=== PATIENT | female | born 1940 | race Caucasian/White ===

== ENCOUNTER 2021-03-13 04:30 | Day surgery (SDC) | payer BC ==
[2021-03-11 16:05] VITALS: BMI 30.1
[2021-03-13] MEDS ORDERED: BUPIVACAINE HCL/PF 0.5% (5MG/ML) 10 ML VIAL ONE (07:33)
[2021-03-13] MEDS ORDERED: TRIAMCINOLONE ACET 40MG/1ML VIAL ONE (07:33)
[2021-03-13] MEDS ORDERED: LIDOCAINE HCL/PF 1% SDV 5ML VIAL ONE (07:33)
[2021-03-13] MEDS ORDERED: LIDOCAINE HCL 1%, 10 MG/ML (20ML VIAL) INF ONE (09:13)
[2021-03-13] MEDS ORDERED: TRIAMCINOLONE ACET 40MG/1ML VIAL IM ONE (09:15)
[2021-03-13] MEDS ORDERED: IOHEXOL 180 MG/1 ML ML IJ ONE (09:15)
[2021-03-13] MEDS ORDERED: BUPIVACAINE HCL/PF 0.5% (5MG/ML) 10 ML VIAL IJ ONE (09:16)
[2021-03-13 09:32] VITALS: TEMP 98.2
[2021-03-13 09:53] VITALS: BP 140/71; PULSE 77
== END 2021-03-13 09:50 | disposition home or self-care (01) ==
LOC: JASU-SURG 04:30
PROVIDERS: ATTEND Pain Medicine Pain Medicine
PROC: 3E0U3BZ Introduction of Anesthetic Agent into Joints, Percutaneous Approach (ICD-10-PCS; 2021-03-13)
PROC: 3E0U33Z Introduction of Anti-inflammatory into Joints, Percutaneous Approach (ICD-10-PCS; principal; 2021-03-13 08:30)
DX: M53.3 Sacrococcygeal disorders, not elsewhere classified (principal)
CPT/HCPCS: 76000-TC-FY

== ENCOUNTER 2021-05-08 04:28 | Day surgery (SDC) | payer BC ==
[2021-05-07 14:41] VITALS: BMI 30.1
[~2021-05-08 04:28] MED LIST: BUPIVACAINE HCL/PF 0.75% 10 ML VIAL NR ONE; IOHEXOL 180 MG/1 ML ML IJ ONE; LIDOCAINE HCL 1% PRESERVATIVE FREE - 30ML VIAL IJ ONE
[2021-05-08] MEDS ORDERED: LIDOCAINE HCL/PF 2% SDV 5ML VIAL ONE (07:28)
[2021-05-08] MEDS ORDERED: LIDOCAINE HCL 1% PRESERVATIVE FREE - 30ML VIAL IJ ONE ×2 (08:43→08:44)
[2021-05-08] MEDS ORDERED: IOHEXOL 180 MG/1 ML ML IJ ONE ×2 (08:44→08:45)
[2021-05-08] MEDS ORDERED: BUPIVACAINE HCL/PF 0.75% 10 ML VIAL NR ONE ×2 (08:44→08:45)
[2021-05-08 10:02] VITALS: BP 143/87; PULSE 75; TEMP 97.7
== END 2021-05-08 09:40 | disposition home or self-care (01) ==
LOC: JASU-SURG 04:28
PROVIDERS: ATTEND Pain Medicine Pain Medicine
PROC: BR16YZZ Fluoroscopy of Lumbar Facet Joint(s) using Other Contrast (ICD-10-PCS; 2021-05-08)
PROC: 3E0T3BZ Introduction of Anesthetic Agent into Peripheral Nerves and Plexi, Percutaneous Approach (ICD-10-PCS; principal; 2021-05-08 08:15)
DX: M47.816 Spondylosis without myelopathy or radiculopathy, lumbar region (principal)
CPT/HCPCS: 76000-TC-FY

== ENCOUNTER 2022-06-08 04:44 | Day surgery (SDC) | payer BC ==
[2022-06-04 16:10] VITALS: BMI 30.6
[2022-06-08] MEDS ORDERED: LIDOCAINE HCL/PF 1% SDV 5ML VIAL ONE (07:44)
[2022-06-08] MEDS ORDERED: DEXAMETHASONE SOD PHOSPHATE 10 MG/1 ML VIAL ONE (07:44)
[2022-06-08] MEDS ORDERED: IOHEXOL 180 MG/1 ML ML IJ ONE (15:49)
[2022-06-08] MEDS ORDERED: LIDOCAINE HCL 1% PRESERVATIVE FREE - 30ML VIAL IJ ONE (15:49)
[2022-06-08] MEDS ORDERED: DEXAMETHASONE SOD PHOSPHATE 10 MG/1 ML VIAL IVPUSH ONE (15:50)
[2022-06-08 16:20] VITALS: BP 138/79; PULSE 75; RESP 16; TEMP 97.8
== END 2022-06-08 16:50 | disposition home or self-care (01) ==
LOC: JASU-SURG 04:44
PROVIDERS: ATTEND Pain Medicine Pain Medicine
PROC: 3E0R33Z Introduction of Anti-inflammatory into Spinal Canal, Percutaneous Approach (ICD-10-PCS; 2022-06-08)
PROC: 3E0R3BZ Introduction of Anesthetic Agent into Spinal Canal, Percutaneous Approach (ICD-10-PCS; principal; 2022-06-08 14:20)
DX: M54.16 Radiculopathy, lumbar region (principal)
CPT/HCPCS: 76000-TC-FY; J1100

== ENCOUNTER 2022-07-13 04:21 | Day surgery (SDC) | payer BC ==
[2022-07-09 14:53] VITALS: BMI 30.6
[2022-07-13] MEDS ORDERED: LIDOCAINE HCL/PF 1% SDV 5ML VIAL ONE (07:42)
[2022-07-13] MEDS ORDERED: BUPIVACAINE HCL/PF 0.5% (5MG/ML) 10 ML VIAL ONE (07:42)
[2022-07-13] MEDS ORDERED: TRIAMCINOLONE ACET 40MG/1ML VIAL ONE (07:42)
[2022-07-13 07:43] VITALS: RESP 18
[2022-07-13] MEDS ORDERED: BUPIVACAINE HCL/PF 0.5% (5 MG/ML) 30 ML VIAL IJ ONE (09:11)
[2022-07-13] MEDS ORDERED: IOHEXOL 180 MG/1 ML ML IJ ONE (09:12)
[2022-07-13] MEDS ORDERED: LIDOCAINE HCL 1% PRESERVATIVE FREE - 30ML VIAL INF ONE (09:12)
[2022-07-13] MEDS ORDERED: TRIAMCINOLONE ACET 40MG/1ML VIAL IM ONE (09:12)
[2022-07-13 10:30] VITALS: BP 126/54; PULSE 75; TEMP 97.3
== END 2022-07-13 09:40 | disposition home or self-care (01) ==
LOC: JASU-SURG 04:21
PROVIDERS: ATTEND Pain Medicine Pain Medicine
PROC: 3E0U3BZ Introduction of Anesthetic Agent into Joints, Percutaneous Approach (ICD-10-PCS; 2022-07-13)
PROC: 3E0U33Z Introduction of Anti-inflammatory into Joints, Percutaneous Approach (ICD-10-PCS; principal; 2022-07-13 09:00)
DX: M53.3 Sacrococcygeal disorders, not elsewhere classified (principal)
CPT/HCPCS: 76000-TC-FY

== ENCOUNTER 2023-01-07 04:10 | Day surgery (SDC) | payer BC ==
[2023-01-06 12:49] VITALS: BMI 30.1
[2023-01-07] MEDS ORDERED: LIDOCAINE HCL/PF 1% SDV 5ML VIAL ONE (07:22)
[2023-01-07] MEDS ORDERED: DEXAMETHASONE SOD PHOSPHATE 10 MG/1 ML VIAL ONE (07:22)
[2023-01-07 09:53] VITALS: RESP 18
[2023-01-07] MEDS ORDERED: LIDOCAINE HCL 1% PRESERVATIVE FREE - 30ML VIAL IJ ONE (11:32)
[2023-01-07] MEDS ORDERED: IOHEXOL 180 MG/1 ML ML IJ ONE (11:32)
[2023-01-07] MEDS ORDERED: DEXAMETHASONE SOD PHOSPHATE 10 MG/1 ML VIAL IVPUSH ONE (11:32)
[2023-01-07 14:18] VITALS: BP 141/71; PULSE 64; TEMP 98
[2023-01-07] MEDS ORDERED: ACETAMINOPHEN 500 MG TABLET (FP) PO PRN (16:37)
== END 2023-01-07 13:10 | disposition home or self-care (01) ==
LOC: JASU-SURG 04:10
PROVIDERS: ATTEND Pain Medicine Pain Medicine
PROC: 3E0R3BZ Introduction of Anesthetic Agent into Spinal Canal, Percutaneous Approach (ICD-10-PCS; 2023-01-07)
PROC: 3E0R33Z Introduction of Anti-inflammatory into Spinal Canal, Percutaneous Approach (ICD-10-PCS; principal; 2023-01-07 12:00)
DX: M54.16 Radiculopathy, lumbar region (principal)
CPT/HCPCS: 76000-TC-FY; J1100

== ENCOUNTER 2024-01-13 04:21 | Day surgery (SDC) | payer BC ==
[2024-01-05 12:26] VITALS: BMI 30.4
[2024-01-13 07:07] VITALS: RESP 20
[2024-01-13] MEDS ORDERED: LIDOCAINE HCL/PF 1% SDV 5ML VIAL ONE (07:08)
[2024-01-13] MEDS ORDERED: MIDAZOLAM HCL 2 MG/2 ML SINGLE DOSE VIAL ONE (07:47)
[2024-01-13] MEDS ORDERED: FENTANYL CITRATE/PF 50 MCG/ML VIAL ONE (07:47)
[2024-01-13] MEDS ORDERED: PROPOFOL 20 ML ONE (07:47)
[2024-01-13] MEDS ORDERED: LIDOCAINE HCL/PF 2% SDV 5ML VIAL ONE (07:48)
[2024-01-13] MEDS ORDERED: ceFAZolin SODIUM 1 GM VIAL ONE (07:48)
[2024-01-13] MEDS ORDERED: SODIUM CHLORIDE 0.9% P/F 10 ML VIAL IJ ONE (07:48)
[2024-01-13] MEDS: ceFAZolin SODIUM 1 GM VIAL IVPB ONE (08:10)
[2024-01-13] MEDS: LIDOCAINE HCL 1% PRESERVATIVE FREE - 30ML VIAL IJ ONE (08:18)
[2024-01-13] MEDS: LIDOCAINE HCL/PF 2% SDV 5ML VIAL INF ONE (08:18)
[2024-01-13 09:07] VITALS: TEMP 97.5
[2024-01-13 10:26] VITALS: BP 127/60; PULSE 59
[2024-01-13] MEDS ORDERED: ACETAMINOPHEN 500 MG TABLET (FP) PO PRN (11:19)
== END 2024-01-13 10:27 | disposition home or self-care (01) ==
LOC: JASU-SURG 04:21
PROVIDERS: ATTEND Pain Medicine Pain Medicine
PROC: 00HU3MZ Insertion of Neurostimulator Lead into Spinal Canal, Percutaneous Approach (ICD-10-PCS; principal; 2024-01-13 08:15)
DX: G89.4 Chronic pain syndrome (principal); M54.16 Radiculopathy, lumbar region; M54.50 Low back pain, unspecified
CPT/HCPCS: 63650; C1897; 76000-TC-FY; C1889